=== PATIENT | female | born 1960 | race African-American/Black ===

== ENCOUNTER 2016-09-18 16:42 | Emergency (ER) | payer MEDICAID, OTHER ==
[~2016-09-18] VITALS: Ht 177.8 cm; Wt 68.0 kg
[2016-09-18] MEDS ORDERED: MECLIZINE 25MG TABLET PO ONE (18:45)
[2016-09-18] MEDS ORDERED: METOCLOPRAMIDE HCL 10MG TABLET PO ONE (18:45)
[2016-09-18] MEDS ORDERED: SODIUM CHLORIDE 0.9% 500 ML IV ONE (18:45)
[2016-09-18] MEDS ORDERED: ACETAMINOPHEN 325MG TABLET PO ONE (21:00)
[2016-09-18 21:01] VITALS: BP 142/69
== END 2016-09-18 21:07 | disposition home or self-care (01) ==
LOC: ER 17:03
DX: H81.10 Benign paroxysmal vertigo, unspecified ear (principal); R11.2 Nausea with vomiting, unspecified; F12.10 Cannabis abuse, uncomplicated; E78.00 Pure hypercholesterolemia, unspecified
CPT/HCPCS: 96360; 99284; J7030; J7040; Z7610; J8597